=== PATIENT | female | born 1955 | race Caucasian/White ===

== ENCOUNTER 2024-11-16 13:05 | Day surgery (SDC) | payer MEDICARE ==
[~2024-11-16] VITALS: Ht 175.3 cm; Wt 90.9 kg
[~2024-11-16 13:05] MED LIST: BIOTIN1 MG PO; IBLOOD GLUCOSE TEST STRIP 1 EA TEST VI PRN; LACTATED RINGER'S 1,000 ML IV SCH; LIDOCAINE HCL 1% 5 ML SDV INJ ONE; MIDAZOLAM HCL 5 MG/5 ML VIAL IV PRN; VITAMIN B COMP1 EACH PO; VITAMIN C1000 MG PO; VITAMIN D325 MCG PO; XARELTO20 MG PO; ZESTRIL5 MG PO; fentaNYL citrate 100 MCG/2 ML VIAL IV PRN
[2024-11-16 13:21] VITALS: BP 162/94
[2024-11-16] MEDS ORDERED: fentaNYL citrate 100 MCG/2 ML VIAL ONE (13:21)
[2024-11-16] MEDS ORDERED: MIDAZOLAM HCL 5 MG/5 ML VIAL ONE (13:21)
[2024-11-16] MEDS ORDERED: TYLENOL325 MG PO (13:27)
--- NOTE | 2024-11-16 14:47 | NUR ---
11/16/24 Jyoti Queen 1438-PATIENT ARRIVED TO PACU ON 3L NC RR EVEN REACTIVE TO VERBAL STIMULI EYES CLOSED VERY DROWSY. PLACED ON 2L NC 99% RR EVEN. IV FLUSHED WELL. PATIENT DENIES PAIN OR NAUSEA. ORIENTED TO PACU. 1446-PATIENT SLEEPING 99% 2L NC RR EVEN
[2024-11-16 15:14] LABS: BASOPHILS 0.5 % (0-2); EOSINOPHILS 1.9 % (0-6); HEMATOCRIT 44.4 % (35.0-50.0); HEMOGLOBIN 15.5 g/dL (12.0-18.0); LYMPHOCYTES 25.1 % (24-44); MCH 32.5 (27-36); MCHC 34.9 g/dl (30-36); MCV 92.9 fl (81-99); MONOCYTES 7.8 % (0-12); NEUTROPHILS 64.7 % (39-80); PLATELET COUNT 240 K/uL (140-440); RBC 4.77 M/ul (4.3-5.7); RDW 13.8 (10.5-15.0)
[2024-11-16 16:08] VITALS: BP 150/83
--- NOTE | 2024-11-17 13:29 | OR ---
[facility] [address], [place] [address] Signed DATE OF OPERATION: 11/16/2024 SURGEON: Aaron Sharp MD PREOPERATIVE DIAGNOSES: 1. History of anemia in January 2024 without overt rectal bleeding. 2. Known factor IV Leiden mutation, chronically anticoagulated with Xarelto. POSTOPERATIVE DIAGNOSIS: Extensive sigmoid and left-sided diverticulosis, otherwise normal. PROCEDURE: Total colonoscopy to cecum. ANESTHESIA: Intravenous sedation, fentanyl 150 mcg and Versed 7 mg. INDICATIONS FOR THE PROCEDURE: This 69-year-old white woman is a patient of JIHAN Andrade. She is referred for consideration of colonoscopy. She has never had a colonoscopy previously. She was noted to have anemia in January of 2024, was treated and this resolved apparently. She does take Xarelto on a routine basis for a factor V Leiden mutation history. She has no family history of colon cancer, stomach or esophageal cancer. She has no upper gastrointestinal symptoms. She is admitted at this time to undergo colonoscopy for screening. She understands the risk of bleeding, infection, and perforation. FINDINGS: The prep was excellent. Complete colonoscopy was undertaken of the cecum with full intubation of the cecum. She had numerous diverticula both small and large of the sigmoid and left colon, however. She had no sign of blood or recent bleeding. No other findings that would account for anemia a year ago. DESCRIPTION OF PROCEDURE: The patient was brought to the endoscopy suite and placed in the lateral decubitus position. She has been off her anticoagulant, Xarelto for three days. She was given intravenous sedation to the point of slurred speech and nystagmus. Full cardiopulmonary monitoring was maintained. An Olympus video colonoscope was passed in the rectum and manipulated throughout the colon noting numerous diverticula both small and large. The scope was ultimately Electronically Signed By: AARON SHARP MD 11/17/24 1329 PATIENT NAME: FLAQUITA VELAZQUEZ OPERATIVE REPORT DATE OF : 51 REPORT #: [id number] PHYSICIAN: AARON SHARP MD PCP: JAGDISH MANN PA-C REPORT IS CONFIDENTIAL AND NOT TO BE RELEASED WITHOUT AUTHORIZATION [facility] [address] [place], [place] [address] Signed advanced to the cecum. Full intubation of the cecum was accomplished, though abdominal wall stabilization was required to do so. Her prep was quite good. The scope was withdrawn from the cecum and examination throughout showed no sign of polyps or colitis, but only diverticulosis as previously noted in the sigmoid and left colon. The rectum was normal as well including on retroflexed view. The scope was removed. The patient was taken to the recovery room in good condition. CONCLUDING DIAGNOSIS: Extensive diverticulosis. PLAN: We would recommend repeat colonoscopy in 10 years based on her age and findings be done sooner if she should have rectal bleeding in fact. We will check a CBC today with carbon copy to her primary provider, Jagdish Mann to assure there is no persisting anemia. If there is, consideration would be made for upper endoscopy and so on. MD JESE Akbar/KYLER /[id number] cc: JIHAN Andrade Copies: ~ Electronically Signed By: AARON SHARP MD 11/17/24 1329 PATIENT NAME: FLAQUITA VLEAZQUEZ OPERATIVE REPORT DATE OF : 51 REPORT #: [id number] PHYSICIAN: AARON SHARP MD PCP: JAGDISH MANN PA-C REPORT IS CONFIDENTIAL AND NOT TO BE RELEASED WITHOUT AUTHORIZATION
== END 2024-11-16 15:50 | disposition home or self-care (01) ==
LOC: DS 13:05 → OPS 13:05 → DS 14:00 → OPS 14:00
PROVIDERS: ATTEND Surgery
PROC: 0DJD8ZZ Inspection of Lower Intestinal Tract, Via Natural or Artificial Opening Endoscopic (ICD-10-PCS; principal; 2024-11-16 14:00)
DX: Z12.11 Encounter for screening for malignant neoplasm of colon (principal); K57.30 Diverticulosis of large intestine without perforation or abscess without bleeding; D68.51 Activated protein C resistance; I10 Essential (primary) hypertension; Z79.01 Long term (current) use of anticoagulants; Z79.899 Other long term (current) drug therapy; Z88.1 Allergy status to other antibiotic agents; Z86.718 Personal history of other venous thrombosis and embolism; Z86.2 Personal history of diseases of the blood and blood-forming organs and certain disorders involving the immune mechanism
CPT/HCPCS: 36415; 85025; 99153; G0500; J2250; J3010; J7121